=== PATIENT | female | born 1970 | race Caucasian/White ===

== ENCOUNTER 2017-06-10 19:57 | Emergency (ER) | payer OTHER ==
[~2017-06-10] VITALS: Ht 160 cm; Wt 69.0 kg
[~2017-06-10 19:57] MED LIST: PROPRANOLOL 1010 MG PO; RESTORIL15 MG PO; SEROQUEL 25 MG25 M1 PO; VITAMIN E100 UNI2 PO; WELLBUTRIN 75 M75 M1 PO; ZOLOFT25 MG PO
[2017-06-10] MEDS ORDERED: CLONAZEPAM 0.50.5 M1 PO (20:22)
[2017-06-10] MEDS ORDERED: TRAMADOL 50 MG50 MG PO (20:30)
[2017-06-10] MEDS ORDERED: ROBAXIN 750 MG750 M1 PO (20:30)
[2017-06-10 20:48] VITALS: BP 119/76
== END 2017-06-10 20:48 | disposition home or self-care (01) ==
LOC: M.ERS 19:57
DX: M54.9 Dorsalgia, unspecified (principal); F32.9 Major depressive disorder, single episode, unspecified; F41.9 Anxiety disorder, unspecified; F17.210 Nicotine dependence, cigarettes, uncomplicated; Z98.890 Other specified postprocedural states

== ENCOUNTER 2017-08-30 18:23 | Emergency (ER) | payer BC ==
[~2017-08-30] VITALS: Ht 160 cm; Wt 71.0 kg
[~2017-08-30 18:23] MED LIST changes: +CLONAZEPAM 0.50.5 M1 PO; +ROBAXIN 750 MG750 M1 PO; +TRAMADOL 50 MG50 MG PO
[2017-08-30 19:10] LABS: ABSOLUTE EOSINOPHILS 0.1 thou/uL (0.0-0.7); ABSOLUTE LYMPHOCYTES 2.1 thou/uL (0.8-5.3); ABSOLUTE MONOCYTES 0.4 thou/uL (0.0-1.2); ABSOLUTE NEUTROPHILS 3.4 thou/uL (1.6-8.1); BASOPHILS 0.5 %; EOSINOPHILS 1.1 %; HEMATOCRIT 35.1 % (37.0-47.0); HEMOGLOBIN 11.9 gm/dL (12.0-15.0); MCH 29.4 pg (26.0-34.0); MCV 86.6 fL (80.0-100.0); MONOCYTES 7.1 %; MPV 7.4 fl. (7.2-11.1); NUCLEATED RBCS 0 /100WBC; PLATELET COUNT* 229 thou/uL (150-400); POLYS 56.3 %; RBC 4.05 mil/uL (4.20-5.00); RDW-CV 13.1 % (10.5-14.5)
[2017-08-30 19:13] LABS: URINE BILIRUBIN NEGATIVE (Negative); URINE BLOOD NEGATIVE (Negative); URINE CLARITY CLEAR; URINE COLOR YELLOW; URINE GLUCOSE-RANDOM NEGATIVE (Negative); URINE KETONES 1+ (Negative); URINE LEUKOCYTES-REFLEX NEGATIVE (Negative); URINE NITRITE-REFLEX NEGATIVE (Negative); URINE PROTEIN TRACE (Negative); URINE SPECIFIC GRAVITY 1.015 (1.005-1.030); URINE UROBILINOGEN 0.2 E.U./dl (0.2-1.0)
[2017-08-30 19:25] LABS: ANION GAP 7 mmol/L (7-16); BUN 18 mg/dL (7-18); CALCIUM 8.6 mg/dL (8.5-10.1); CHLORIDE 106 mmol/L (98-107); CO2 27 mmol/L (21-32); CREATININE 0.9 mg/dL (0.6-1.3); GLUCOSE 112 mg/dL (70-99); POTASSIUM 3.6 mmol/L (3.5-5.1); SODIUM 140 mmol/L (136-145)
[2017-08-30 19:30] LABS: ALBUMIN 3.4 g/dL (3.4-5.0); ALKALINE PHOSPHATASE 55 U/L (46-116); SGOT 31 U/L (15-37); SGPT 81 U/L (30-65); TOTAL BILIRUBIN 0.1 mg/dL (<0.1-1.0); TOTAL PROTEIN 6.9 g/dL (6.4-8.2); TROPONIN-I LEVEL <0.06 ng/mL (<0.06)
[2017-08-30 19:30] LABS: AMP/METHAMP Negative (Negative); BARBITURATES Negative (Negative); BENZODIAZEPINES Negative (Negative); COCAINE Negative (Negative); METHADONE Negative (Negative); OPIATES Negative (Negative); PCP Negative (Negative); THC Negative (Negative)
[2017-08-30] MEDS ORDERED: KEFLEX500 M1 PO (19:44)
[2017-08-30] MEDS ORDERED: XANAX 0.5 MG0.5 MG PO (19:44)
[2017-08-30] MEDS ORDERED: ROBAXIN 750 MG750 M1 PO (19:49)
[2017-08-30 19:53] VITALS: BP 126/60
== END 2017-08-30 19:55 | disposition home or self-care (01) ==
LOC: M.ERS 18:23
PROVIDERS: Physician Assistant
DX: R59.1 Generalized enlarged lymph nodes (principal); F41.9 Anxiety disorder, unspecified; F31.9 Bipolar disorder, unspecified; F17.210 Nicotine dependence, cigarettes, uncomplicated; Z90.710 Acquired absence of both cervix and uterus; Z98.890 Other specified postprocedural states